=== PATIENT | male | born 1960 | race African-American/Black ===

== ENCOUNTER 2021-01-17 09:25 | Day surgery (SDC) | payer OTHER, SELFPAY ==
[~2021-01-17] VITALS: Ht 182.9 cm; Wt 109.8 kg
[2021-01-17] MEDS ORDERED: fentaNYL citrate 0.05 MG/ML VIAL ONE (11:19)
[2021-01-17] MEDS ORDERED: LIDOCAINE 2% 100 MG/5 ML UJET TP ONE (11:20)
== END 2021-01-17 12:42 | disposition home or self-care (01) ==
LOC: MDS 09:25 → MMU 09:32 → MDS 12:42
PROVIDERS: ATTEND Internal Medicine Gastroenterology
DX: K62.5 Hemorrhage of anus and rectum (principal); K62.89 Other specified diseases of anus and rectum; E11.9 Type 2 diabetes mellitus without complications; Z90.49 Acquired absence of other specified parts of digestive tract; Z79.84 Long term (current) use of oral hypoglycemic drugs; Z79.899 Other long term (current) drug therapy; Z20.822 Contact with and (suspected) exposure to COVID-19
CPT/HCPCS: J3010